=== PATIENT | female | born 1975 | race Caucasian/White ===

== ENCOUNTER → 2017-09-12 15:53 | Outpatient (CLI) | payer OTHER, SELFPAY ==
--- NOTE | 2017-09-12 15:59 | MR_ITS ---
MR lumbar spine wo con, MR 3-d myelogram/MRCP Ordering Physician: Jose Raman MD Patient Age: 41 years: Female HISTORY: ITS.REASON: HERNIATED DISC pain since 2014 Bilateral leg pain. Previous discectomy TECHNIQUE: Sagittal STIR, T1, T2, axial T1 and T2. On 1.5T Siemens wide bore MRI. 3-D MR myelogram image set obtained & performed on MRI workstation. Additional sagittal thin section T2 weighted dataset obtained from this latter acquisition as well (---76 CPT) COMPARISON :MRI L-spine August 2016 FINDINGS Vertebral bodies are intact. No compression fractures or lesions L5/S1. Disc space narrowing with reactive endplate changes about this degenerative disc again noted. There is eccentric disc bulge with additional disc protrusion towards the left recess and foramen. Actually this disc herniation is clearly smaller and less evident than on 2017 exam.. Last year there was prominent focal extruded disc material which is since markedly decreased There continues to be some indentation upon the left corner of the thecal sac and encroachment upon the left recess and foramen but is significantly less pronounced than last year exam. His a been interval procedure? (No history of such given if so) if no procedure this may reflect interval resorption. There are some old postsurgical changes likely from remote left microdiscectomy which seem to be similar to last years 2017 study Also at this L5/S1 level level mild disc bulge continuing to right foramen yields mild right foraminal encroachment. The remaining vertebral bodies and disc spaces appear intact and unremarkable foramen widely patent at all other levels. No significant findings are again seen at the L5/S1 level. Disc space narrowing with asymmetric disc bulge midline and to the left encroaches upon the left foramen and recess. IMPRESSION: ...... L5/S1.On last years exam there is a prominent focal disc extrusion at left recess & foramen.... This focal soft disc herniation material has shown marked regression and improvement-, with now only minimal residual broad-based protrusion to the left which slightly indents the left thecal sac & yields only mild /moderate residual left foraminal encroachment. Clinically correlation required . Also minimal residual stable disc bulge to the right at this L5/S1 level, which yields mild right foraminal encroachment . Other levels above this unremarkable
== END ==
PROVIDERS: PCP Nurse Practitioner; Visit Provider Orthopaedic Surgery
DX: M51.26 Other intervertebral disc displacement, lumbar region (principal)
CPT/HCPCS: 72148; 76376

== ENCOUNTER → 2019-01-10 14:45 | Outpatient (CLI) | payer OTHER, SELFPAY ==
--- NOTE | 2019-01-10 14:50 | US_ITS ---
PROCEDURE: US KIDNEY CLINICAL INDICATION: ABNORMAL KIDNEY FUNCTION COMPARISON: KID US [id number] from 12/02/2015 FINDINGS: The right kidney is 8.3 x 4 x 4.5 cm. There is some cortical thinning of the right kidney. No hydronephrosis. Small echogenic focus is present in the mid polar region and could represent a small stone. The left kidney is 10.4 x 6 x 5.5 cm. No hydronephrosis or cortical thinning. IMPRESSION: No hydronephrosis. Mild right renal cortical thinning with possible nephrolithiasis on the right Dictated by: Hernesto Chaudhry MD 01/10/2019 17:10 Signed by: <Electronically signed by Hernesto Chaudhry MD in [place]> 01/10/2019 17:10
== END ==
PROVIDERS: PCP Nurse Practitioner; Visit Provider Nurse Practitioner
DX: N28.9 Disorder of kidney and ureter, unspecified (principal)
CPT/HCPCS: 76770

== ENCOUNTER → 2019-02-17 13:40 | Outpatient (CLI) | payer OTHER, SELFPAY ==
--- NOTE | 2019-02-17 13:52 | XR_ITS ---
PROCEDURE: XR RIBS LT MIN 3V W CXR1V Patient Age:43Y CLINICAL INDICATION: LEFT RIB PAIN directly under left breast no known injury COMPARISON: CXR CHEST(2 VIEWS-NOT PORTABLE) from 12/09/2013 CXR CHEST(2 VIEWS-NOT PORTABLE) from 05/26/2015 CXR CHEST(2 VIEWS-NOT PORTABLE) from 01/15/2017 FINDINGS: Both oblique views ribs and a frontal view of ribs /chest above and below diaphragm were obtained. The left ribs are intact with no fracture nor lesion evident. The lungs are clear with no pneumothorax nor effusion or chest wall findings. Heart miladis and mediastinal structures unremarkable as well IMPRESSION: No acute findings. Negative left ribs And negative upright chest Dictated by: Thaddeus Trejo MD 02/18/2019 10:57 Electronically signed by Thaddeus Trejo MD in [place] 02/18/2019 10:57
== END ==
PROVIDERS: PCP Nurse Practitioner; Visit Provider Nurse Practitioner
DX: R07.81 Pleurodynia (principal)
CPT/HCPCS: 71101

== ENCOUNTER → 2019-04-16 07:34 | Outpatient (CLI) | payer OTHER, SELFPAY ==
[2019-04-16 07:49] LABS: Basophils # 0.1 K/mm3 (0-0.2); Basophils % 0.5 % (0.1-2.0); Eosinophils # 0.1 K/mm3 (0.0-0.4); Eosinophils % 0.7 % (0.1-12.0); Hematocrit 42.1 % (37.0-47.0); Hemoglobin 13.5 g/dL (12.2-16.2); Lymphocytes # 4.3 K/mm3 (0.7-4.5); Lymphocytes % 28.3 % (10-50); Mean Corpuscular HGB Conc 32.1 g/dL (31.8-35.4); Mean Corpuscular Hemoglobin 28.4 pg (27.0-31.2); Mean Corpuscular Volume 88.4 fl (81-99); Mean Platelet Volume 9.1 fl (7.4-10.4); Monocytes # 0.6 K/mm3 (0.1-1.0); Monocytes % 4.3 % (1.7-9.3); Neutrophils % 66.2 % (37.0-80.0); Platelet Count 296 K/mm3 (142-424); Red Blood Count 4.76 M/mm3 (4.20-5.40); Red Cell Distribution Width 13.3 % (11.5-17.5)
[2019-04-16 07:51] LABS: MANUAL DIFFERENTIAL MANUAL DIFFERENTIAL (MANUAL DIFF)
[2019-04-16 08:16] LABS: HCG Qualitative, Serum Negative (Negative)
[2019-04-16 08:25] LABS: Alanine Aminotransferase 21 U/L (12-78); Albumin Level 3.2 gm/dL (3.4-5.0); Albumin/Globulin Ratio 1.1 (1.1-1.8); Alkaline Phosphatase 60 U/L (46-116); Anion Gap 14.6 mEq/L (5-15); Aspartate Amino Transferase 17 U/L (15-37); Bilirubin,Total 0.2 mg/dL (0.2-1.0); Blood Urea Nitrogen 21 mg/dL (7-18); Calcium 8.8 mg/dL (8.5-10.1); Carbon Dioxide 27 mmol/L (21.0-32.0); Chloride 103 mmol/L (98-107); Creatinine,Serum 1.04 mg/dL (0.55-1.02); Estimated Glomerular Filt Rate 57 ml/min (>60); GFR (African American) 69 ML/MIN (>60); Glucose 106 mg/dL (74-106); Potassium 3.6 mmoL/L (3.5-5.1); Sodium 141 mmol/L (136-145); Total Protein,Serum 6.2 gm/dL (6.4-8.2)
[2019-04-16 09:55] LABS: Eosinophils % 1 % (0-3); Lymphocytes % 33 % (10-50); Monocytes % 2 % (2-9); Neutrophils % 63 % (42-76); Platelet Estimate Normal; RBC Morphology Normal; Total Cells Counted 100
== END ==
PROVIDERS: Visit Provider Obstetrics & Gynecology
DX: Z01.818 Encounter for other preprocedural examination (principal); N92.0 Excessive and frequent menstruation with regular cycle; Z30.09 Encounter for other general counseling and advice on contraception
CPT/HCPCS: 36415; 80053; 84703; 85007; 85025

== ENCOUNTER → 2019-04-25 07:09 | Outpatient (CLI) | payer OTHER, SELFPAY ==
[2019-04-25 07:44] LABS: Basophils # 0.1 K/mm3 (0-0.2); Basophils % 0.6 % (0.1-2.0); Eosinophils # 0.1 K/mm3 (0.0-0.4); Eosinophils % 1.2 % (0.1-12.0); Hematocrit 39.1 % (37.0-47.0); Hemoglobin 12.8 g/dL (12.2-16.2); Lymphocytes # 4.1 K/mm3 (0.7-4.5); Lymphocytes % 44.6 % (10-50); Mean Corpuscular HGB Conc 32.7 g/dL (31.8-35.4); Mean Corpuscular Hemoglobin 29.1 pg (27.0-31.2); Mean Corpuscular Volume 88.8 fl (81-99); Mean Platelet Volume 8.7 fl (7.4-10.4); Monocytes # 0.4 K/mm3 (0.1-1.0); Monocytes % 4.2 % (1.7-9.3); Neutrophils # 4.5 K/mm3 (1.8-7.8); Neutrophils % 49.5 % (37.0-80.0); Platelet Count 325 K/mm3 (142-424); Red Cell Distribution Width 13.1 % (11.5-17.5); White Blood Count 9.2 K/mm3 (4.8-10.8)
[2019-04-25 09:45] LABS: Alanine Aminotransferase 28 U/L (12-78); Albumin Level 3.3 gm/dL (3.4-5.0); Albumin/Globulin Ratio 1.1 (1.1-1.8); Alkaline Phosphatase 66 U/L (46-116); Anion Gap 13.8 mEq/L (5-15); Aspartate Amino Transferase 14 U/L (15-37); Bilirubin,Total 0.2 mg/dL (0.2-1.0); Blood Urea Nitrogen 15 mg/dL (7-18); Calcium 8.6 mg/dL (8.5-10.1); Carbon Dioxide 27 mmol/L (21.0-32.0); Chloride 104 mmol/L (98-107); Creatinine,Serum 1.15 mg/dL (0.55-1.02); Estimated Glomerular Filt Rate 51 ml/min (>60); GFR (African American) 62 ML/MIN (>60); Glucose 102 mg/dL (74-106); Potassium 3.8 mmoL/L (3.5-5.1); Sodium 141 mmol/L (136-145); Total Protein,Serum 6.3 gm/dL (6.4-8.2)
== END ==
PROVIDERS: Obstetrics & Gynecology; Visit Provider Nurse Practitioner Obstetrics & Gynecology
DX: Z01.818 Encounter for other preprocedural examination (principal); N92.0 Excessive and frequent menstruation with regular cycle; Z30.09 Encounter for other general counseling and advice on contraception
CPT/HCPCS: 36415; 80053; 85025

== ENCOUNTER → 2019-05-17 10:58 | Outpatient (CLI) | payer OTHER, SELFPAY ==
[2019-05-17 11:33] LABS: Basophils # 0.1 K/mm3 (0-0.2); Basophils % 0.4 % (0.1-2.0); Eosinophils % 0.2 % (0.1-12.0); Hematocrit 38.6 % (37.0-47.0); Lymphocytes # 2.9 K/mm3 (0.7-4.5); Mean Corpuscular HGB Conc 33.8 g/dL (31.8-35.4); Mean Platelet Volume 8.4 fl (7.4-10.4); Monocytes # 0.4 K/mm3 (0.1-1.0); Monocytes % 3.2 % (1.7-9.3); Neutrophils # 8.1 K/mm3 (1.8-7.8); Neutrophils % 71.1 % (37.0-80.0); Platelet Count 344 K/mm3 (142-424); Red Cell Distribution Width 13.1 % (11.5-17.5); White Blood Count 11.4 K/mm3 (4.8-10.8)
[2019-05-17 12:09] LABS: Troponin I < 0.02 ng/ml (0.00-0.06)
[2019-05-17 12:31] LABS: Alanine Aminotransferase 31 U/L (12-78); Albumin Level 3.6 gm/dL (3.4-5.0); Alkaline Phosphatase 62 U/L (46-116); Anion Gap 14.8 mEq/L (5-15); Aspartate Amino Transferase 23 U/L (15-37); Bilirubin,Direct 0.1 mg/dL (0.0-0.2); Bilirubin,Indirect 0.2 mg/dL (0.0-0.9); Bilirubin,Total 0.3 mg/dL (0.2-1.0); Blood Urea Nitrogen 11 mg/dL (7-18); Calcium 9.1 mg/dL (8.5-10.1); Carbon Dioxide 26 mmol/L (21.0-32.0); Chloride 106 mmol/L (98-107); Chol/HDL Ratio 4.8 (1-3.5); Cholesterol 286 mg/dL (140-200); Creatinine,Serum 0.98 mg/dL (0.55-1.02); Estimated Glomerular Filt Rate 61 ml/min (>60); Free T4 (Free Thyroxine) 1.32 ng/dl (0.76-1.46); GFR (African American) 74 ML/MIN (>60); Glucose 96 mg/dL (74-106); HDL Cholesterol 60 mg/dL (29-89); LDL Cholesterol 199 mg/dL (0-130); Potassium 3.8 mmoL/L (3.5-5.1); Sodium 143 mmol/L (136-145); Thyroid Stimulating Hormone 0.75 uIU/ml (0.358-3.740); Total Protein,Serum 6.6 gm/dL (6.4-8.2); Triglycerides 134 mg/dL (30-200); VLDL Cholesterol 27 mg/dL (0-40)
== END ==
PROVIDERS: Visit Provider Nurse Practitioner Family
DX: R07.9 Chest pain, unspecified (principal); I10 Essential (primary) hypertension; Z79.899 Other long term (current) drug therapy
CPT/HCPCS: 36415; 80048; 80061; 80076; 84439; 84443; 84484; 85025

== ENCOUNTER → 2019-05-25 08:08 | Outpatient (CLI) | payer OTHER, SELFPAY ==
--- NOTE | 2019-05-25 08:11 | CA_ITS ---
APPROVED REPORT Health Companion: Sofia Mccoy RVT Study Quality: GoodExcellent Indications: HTN Risk Factors Hypertension Hyperlipidemia Renal Artery Doppler Origin (R) 166.8/ cm/sec Proximal (R) 127.8/ cm/sec Mid (R) 109.1/ cm/sec Distal (R) 164.7/ cm/sec Renal Aorta Ratio (R) 1.64 Segmental A. (R) 58.3/20.0 cm/sec RI: 0.65 Segmental A. Sup (R) 45.5/22.4 cm/sec Segmental A. Mid (R) 43.9/21.6 cm/sec Segmental A. Inf (R) 58.3/20.0 cm/sec Origin (L) 98.6/ cm/sec Proximal (L) 136.5/ cm/sec Mid (L) 81.6/ cm/sec Distal (L) 116.0/ cm/sec Renal Aorta Ratio (L) 1.34 Segmental A. (L) 73.7/29.8 cm/sec RI: 0.59 Segmental A. Sup (L) 58.2/19.1 cm/sec Segmental A. Mid (L) 73.7/29.8 cm/sec Segmental A. Inf (L) 68.2/28.2 cm/sec Renal Measurements Kidney Size (R) 7.8x4.2 cm Cortical Thickness (R) 0.9 cm Kidney Size (L) 10.6x6.0 cm Cortical Thickness (L) 1.5 cm Conclusion Study suggests no evidence of bilateral renal artery stenosis. Mild right renal cortical thinning. Electronically signed by : Hernesto Chaudhry MD 05/25/2019 15:53:37
== END ==
PROVIDERS: PCP Nurse Practitioner; Visit Provider Nurse Practitioner Family
DX: I10 Essential (primary) hypertension (principal)
CPT/HCPCS: 93976

== ENCOUNTER → 2019-12-24 18:19 | Outpatient (CLI) | payer BC, SELFPAY ==
[2019-12-24 20:22] LABS: Chloride 99 mmol/L (98-107); Potassium 3.8 mmoL/L (3.5-5.1); Sodium 140 mmol/L (136-145)
[2019-12-24 20:24] LABS: Blood Urea Nitrogen 18 mg/dl (7-17)
[2019-12-24 20:25] LABS: Alanine Aminotransferase 28 U/L (12-78); Albumin Level 4.6 g/dl (3.5-5.0); Albumin/Globulin Ratio 1.7 (1.1-1.8); Alkaline Phosphatase 82 U/L (38-126); Anion Gap 15.8 mEq/L (5-15); Aspartate Amino Transferase 34 U/L (14-36); Bilirubin,Total 0.5 mg/dl (0.2-1.3); Carbon Dioxide 29 mmol/L (22.0-30.0); Estimated Glomerular Filt Rate 67 ml/min (>60); GFR (African American) 82 ML/MIN (>60); Globulin 2.7 g/dL (1.3-3.2); Total Protein,Serum 7.3 g/dl (6.3-8.2)
[2019-12-24 20:26] LABS: Calcium 10.7 mg/dl (8.4-10.2); Glucose 111 mg/dl (74-100)
== END ==
PROVIDERS: Visit Provider Nurse Practitioner
DX: N28.9 Disorder of kidney and ureter, unspecified (principal); I10 Essential (primary) hypertension
CPT/HCPCS: 36415; 80053

== ENCOUNTER 2020-03-13 18:17 | Emergency (ER) | payer BC, SELFPAY ==
--- NOTE | 2020-03-13 18:29 | HMH.EDUTC ---
[facility] [place] Dis[place] Clinical Impression: Acute bronchitis Qualifiers: Bronchitis organism: unspecified organism Qualified Code(s): J20.9 - Acute bronchitis, unspecified Sinusitis Qualifiers: Sinusitis location: unspecified location Chronicity: acute Recurrence: non-recurrent Qualified Code(s): J01.90 - Acute sinusitis, unspecified Disposition: Home, Self-Care Condition on Discharge: Good Instructions: Sinusitis, DI for Acute Bronchitis Additional Instructions: Drink plenty of fluids. Take tylenol or ibuprofen for pain or fever. Take the medications as directed. Follow up with your regular doctor. GO TO THE ER FOR ANY WORSENING SYMPTOMS Don't start the oral steroids until tomorrow, since you had the shot here today. Prescriptions: methylPREDNISolone [Medrol] 4 mg PO DIRECTED 6 Days #21 tab.ds.pk Transmission Status: Received by [facility] Benzonatate [Tessalon Perle 100mg Cap] 100 mg PO TIDP PRN #30 cap PRN Reason: Cough Transmission Status: Received by [facility] Azithromycin [Z-Jed 250mg Tab*] 250 mg PO UD DOSE PK #6 tab Transmission Status: Received by [facility] Referrals: Morelia Ramirez APRN [Primary Care Provider] - Forms: Work/School Release Time of Disposition: 19:24 Medical Decision Making - Medical Records Medical records reviewed: No: I reviewed the patient's medical records. - Kannan Inquiry Pt receiving controlled substance: No Vital Signs: 03/13/20 18:33 03/13/20 19:19 Temperature 98.6 F 98.6 F Temperature Source Oral Pulse Rate 92 H Pulse Rate [Right Brachial] 92 H Respiratory Rate 16 16 Blood Pressure 169/84 H Blood Pressure [Right Arm] 169/84 H Blood Pressure Mean [Right Arm] 112 Blood Pressure Source [Right Arm] Automatic Cuff Blood Pressure Position [Right Arm] Sitting 02 Sat by Pulse Oximetry 100 Oxygen Delivery Method Room Air Orders (Tests/Meds): ED MEDICATIONS Discontinued Medications Generic Name Dose Route Start Last Admin Trade Name Freq PRN Reason Stop Dose Admin Methylprednisolone Sodium Succinate 125 mg 03/13/20 19:07 03/13/20 19:08 Methylprednisolone Sod Succ 125mg Vial IM 03/13/20 19:08 125 mg ONCE ONE Administration [facility] [place] HPI - General Stated complaint: congestion Time Seen by Provider: 03/13/20 18:36 - History of Present Illness Provider Complaint: She c/o chest congestion and cough for the past 3 days. She states that she gets sick like this every fall. Last year at around this time she had pneumonia. She denies any fever or chills at this time. - Related Data Home Medications Medication Instructions Recorded Confirmed Furosemide [Furosemide 40MG tAB*] 40 mg PO BID 04/02/19 05/17/19 Levothyroxine Sodium 75 mcg PO DAILY 04/02/19 05/17/19 [Levothyroxine 75mcg (0.075mg) Tab] Losartan Potassium 100 mg PO DAILY 04/02/19 05/17/19 acyclovir 800 mg tablet 800 mg PO PRN tab 05/17/19 05/17/19 nortriptyline 10 mg capsule 30 mg PO QHS #90 cap 05/17/19 05/17/19 potassium chloride 20 mEq 20 meq PO DAILY tab 05/17/19 05/17/19 tablet,extended release Previous Rx's Medication Instructions Recorded atorvastatin 20 mg tablet 20 mg PO DAILY #30 tab 05/18/19 bisoprolol fumarate 5 mg tablet 5 mg PO DAILY #30 tab 10/31/19 valacyclovir 500 mg tablet 500 mg PO DAILY #30 tab 11/22/19 Azithromycin [Z-Jed 250mg Tab*] 250 mg PO UD DOSE PK #6 tab 03/13/20 Benzonatate [Tessalon Perle 100mg 100 mg PO TIDP PRN #30 cap 03/13/20 Cap] methylPREDNISolone [Medrol] 4 mg PO DIRECTED 6 Days #21 03/13/20 tab.ds.pk Allergies Allergy/AdvReac Type Severity Reaction Status Date / Time chlorhexidine Allergy Intermediate Verified 05/17/19 10:32 [From Hibiclens] amoxicillin [From AUGMENTIN] Allergy Mild Verified 05/17/19 10:32 erythromycin base Allergy Mild Verified 05/17/19 10:32 [ERYTHROMYCIN BASE] metaxalone [From SKELAXIN] Allergy Mild Verified 05/17/19 10:32 clavu
[2020-03-13 18:33] VITALS: BP 169/84; PULSE 92; RESP 16; TEMP 37; O2SAT 100; BMI 30.9
--- NOTE | 2020-03-13 18:49 | XR_ITS ---
PROCEDURE: XR CHEST 2V CLINICAL HISTORY: COUGH COMPARISON: CR CXR CHEST(2 VIEWS-NOT PORTABLE) from 05/26/2015 CR CXR CHEST(2 VIEWS-NOT PORTABLE) from 01/15/2017 CR XR RIBS LT MIN 3V W CXR1V from 02/17/2019 FINDINGS: The cardiomediastinal silhouette and pulmonary vascularity are within normal limits. There is evidence of old granulomatous disease with a calcified granuloma projecting over the anterior clear space. No lobar consolidation or collapse. No acute bony abnormalities. IMPRESSION: No acute findings. Dictated by: Hernesto Chaudhry MD 03/13/2020 20:52 Hernesto Chaudhry MD in [place] 03/13/2020 20:52
[2020-03-13 19:19] VITALS: BP 169/84; PULSE 92; RESP 16; TEMP 37; O2SAT 100
== END 2020-03-13 19:30 | disposition home or self-care (01) ==
PROVIDERS: Emergency Provider Nurse Practitioner Family; PCP Nurse Practitioner
DX: J20.9 Acute bronchitis, unspecified (principal); J01.90 Acute sinusitis, unspecified; Z20.828 Contact with and (suspected) exposure to other viral communicable diseases; K21.9 Gastro-esophageal reflux disease without esophagitis; I10 Essential (primary) hypertension; G43.709 Chronic migraine without aura, not intractable, without status migrainosus; E03.9 Hypothyroidism, unspecified; Z79.899 Other long term (current) drug therapy; Z88.1 Allergy status to other antibiotic agents
CPT/HCPCS: 71046; 96372; 99202; U0003

== ENCOUNTER → 2020-03-18 11:55 | Outpatient (CLI) | payer BC, SELFPAY ==
--- NOTE | 2020-03-18 13:20 | XR_ITS ---
PROCEDURE: XR CHEST PORTABLE CLINICAL HISTORY: COVID TEST COMPARISON: CR CXR CHEST(2 VIEWS-NOT PORTABLE) from 01/15/2017 CR XR RIBS LT MIN 3V W CXR1V from 02/17/2019 CR XR CHEST 2V from 03/13/2020 FINDINGS: The cardiomediastinal silhouette and pulmonary vascularity are within normal limits. The lungs are clear without infiltrates, suspicious nodules, or pleural effusions. No acute bony abnormalities. IMPRESSION: No acute findings. Dictated by: Dr. Abdifatah Parra MD 03/18/2020 15:14 Dr. Abdifatah Parra MD in [place] 03/18/2020 15:14
[2020-03-18 13:31] LABS: Adenovirus,PCR Not Detected (NotDetected); Bordetella Pertussis Not Detected (NotDetected); Chlamydophila Pneumoniae, PCR Not Detected (NotDetected); Coronavirus 19, PCR Not Detected (NotDetected); Coronavirus 229E Not Detected (NotDetected); Coronavirus NL63 Not Detected (NotDetected); Coronavirus OC43 Not Detected (NotDetected); Coronovirus HKU1,PCR Not Detected (NotDetected); Human Metapneumovirus Not Detected (NotDetected); Influenza A, PCR Not Detected (NotDetected); Influenza AH1, 2009 Not Detected (NotDetected); Influenza AH1, PCR Not Detected (NotDetected); Influenza AH3,PCR Not Detected (NotDetected); Influenza B, PCR Not Detected (NotDetected); Mycoplasma Pneumoniae, PCR Not Detected (NotDetected); Parainfluenza 1, PCR Not Detected (NotDetected); Parainfluenza 2, PCR Not Detected (NotDetected); Parainfluenza 3, PCR Not Detected (NotDetected); Parainfluenza 4, PCR Not Detected (NotDetected); Respiratory Syncytial Virus Not Detected (NotDetected); Rhinovirus/Enterovirus Not Detected (NotDetected)
== END ==
PROVIDERS: PCP Nurse Practitioner Family; Visit Provider Nurse Practitioner Family
DX: Z03.818 Encounter for observation for suspected exposure to other biological agents ruled out (principal)
CPT/HCPCS: 71045; 87486; 87581; 87633; 87798; U0003

== ENCOUNTER 2020-04-17 18:41 | Emergency (ER) | payer BC, SELFPAY ==
[2020-04-17 19:13] VITALS: BP 128/99; PULSE 98; RESP 16; TEMP 36.9; O2SAT 98; BMI 30.9
--- NOTE | 2020-04-17 19:42 | HMH.EDUTC ---
[facility] [place] Clinical Impression: URI (upper respiratory infection) Qualifiers: URI type: unspecified URI Qualified Code(s): J06.9 - Acute upper respiratory infection, unspecified Disposition: Home, Self-Care Condition on Discharge: Good Instructions: Sinusitis, Acute Bronchitis Additional Instructions: *Monitor Temp, Over the counter Motrin or Tylenol as directed/as needed Tylenol every 4 hours and Motrin every 6 hours (as long as your family doctor has told you that you can take it) for fever or pain. and straight to ER if unable to lower temp less than 101.0 after medication given *Warm salt water gargles may help to soothe the throat *Throat Lozenges *Warm fluids like tea with honey may help to soothe the throat *Sleep elevated *Humidifier/Vaporizer *Flonase 2 sprays in each nostril daily but be aware that it may take 2-3 days before you notice improvement Follow up IMMEDIATELY for new or worsening symptoms or no Noticeable improvement over the next 48-72 hours. 911 for difficulty breathing or swallowing You were tested for today for COVID19 your test result should be back in the next 24-48 hours, you may call to the [facility] to see if your test results are back in the next 48 hours [phone] [facility] hours are 9am-9pm You was given a handout with instructions for Self Quarantine and Self isolation for while you wait on test results and what to do if they are positive If you are positive the Health Dept will be contacting you also Prescriptions: Benzonatate [Tessalon Perle 100mg Cap*] 100 mg PO TID PRN #15 cap PRN Reason: Cough Transmission Status: Received by [facility] Azithromycin [Z-Jed 250mg Tab] 250 mg PO DIRECTED #6 tab Transmission Status: Received by [facility] Referrals: Morelia Ramirez APRN [Primary Care Provider] - As needed Forms: Work/School Release Time of Disposition: 19:56 Medical Decision Making - Kannan Inquiry Pt receiving controlled substance: No Kannan was queried for this patient: No Vital Signs: 04/17/20 19:13 04/17/20 19:45 Temperature 98.5 F 98.5 F Temperature Source Oral Oral Pulse Rate 95 H Pulse Rate [Right] 98 H Respiratory Rate 16 16 Blood Pressure 126/98 H Blood Pressure [Right Arm] 128/99 H Blood Pressure Mean [Right Arm] 108 Blood Pressure Source Automatic Cuff Blood Pressure Source [Right Arm] Automatic Cuff Blood Pressure Position Sitting Blood Pressure Position [Right Arm] Sitting 02 Sat by Pulse Oximetry 98 Oxygen Delivery Method Room Air Room Air Orders (Tests/Meds): ED MEDICATIONS Discontinued Medications Generic Name Dose Route Start Last Admin Trade Name Freq PRN Reason Stop Dose Admin Methylprednisolone Sodium Succinate 125 mg 04/17/20 19:50 04/17/20 20:05 Methylprednisolone Sod Succ 125mg Vial IM 04/17/20 19:51 125 mg ONCE ONE Administration ORDERS Category Date Time Status Covid-19 Nasal PCR Sendout [facility] 04/17/20 19:15 Received Medical Decision Narrative: Patient states that she has taken azithromycin and solumedrol multiple times without reaction or complications [facility] [place] - General Stated complaint: cough congestion sore throat headache Time Seen by Provider: 04/17/20 19:42 Mode of Arrival: Ambulatory Source of Information: Patient Limitations: No Limitations Description of Symptoms (Recalled from Triage Doc. by RN): pt advises she has cough, congestion, sore throat HEENT Symptoms (Recalled from RN notes): No Resp Symptoms (Recalled from RN notes): Yes (cough,congestion, sore throat) Skin Symptoms (Recalled from RN notes): No MS Symptoms (Recalled from RN notes): No Functional Status (Recalled from RN notes): na - History of Present Illness Provider Complaint: Patient state that she has bronchitis frequently around this time every year State that she was also around a friend that tested negative for COVID but both her children tested positive States that she has been
[2020-04-17 19:45] VITALS: BP 126/98; PULSE 95; RESP 16; TEMP 36.9; O2SAT 98
[2020-04-19 17:48] LABS: Covid-19 Nasal PCR Sendout Lex Not Detected
== END 2020-04-17 20:11 | disposition home or self-care (01) ==
PROVIDERS: Emergency Provider Nurse Practitioner; PCP Nurse Practitioner
DX: Z20.828 Contact with and (suspected) exposure to other viral communicable diseases (principal); J06.9 Acute upper respiratory infection, unspecified; K21.9 Gastro-esophageal reflux disease without esophagitis; I10 Essential (primary) hypertension; E03.9 Hypothyroidism, unspecified; G43.709 Chronic migraine without aura, not intractable, without status migrainosus; Z79.899 Other long term (current) drug therapy
CPT/HCPCS: 99201; U0004

== ENCOUNTER 2020-06-19 09:34 | Emergency (ER) | payer BC, SELFPAY ==
[2020-06-19 09:45] VITALS: BP 117/75; PULSE 76; RESP 14; TEMP 36.5; O2SAT 99; BMI 30.4
--- NOTE | 2020-06-19 10:10 | HMH.EDUTC ---
[facility] [place] Disposition Clinical Impression: Viral syndrome, Exposure to COVID-19 virus Acute bronchitis Qualifiers: Bronchitis organism: unspecified organism Qualified Code(s): J20.9 - Acute bronchitis, unspecified Disposition: Home, Self-Care Condition on Discharge: Good Instructions: DI for Acute Bronchitis, Preventing the Spread of Coronavirus Discharge Instructions Additional Instructions: Drink plenty of fluids. Take tylenol for pain or fever. Return if you begin to have difficulty breathing. Follow up with your regular doctor. GO TO THE ER FOR ANY WORSENING SYMPTOMS The cough medication (promethazine dm) will make you drowsy, so don't drive or operate heavy machinery after taking it. Prescriptions: Promethazine/Dextromethorphan [Promethazine-Dm Syrup] 5 ml PO Q6HP PRN #240 syrup PRN Reason: Cough Transmission Status: Received by [facility] Azithromycin [Z-Jed 250mg Tab*] 250 mg PO UD DOSE PK #6 tab Transmission Status: Received by [facility] Referrals: Morelia Ramirez APRN [Primary Care Provider] - Time of Disposition: 10:17 Medical Decision Making - Medical Records Medical records reviewed: No: I reviewed the patient's medical records. - Kannan Inquiry Pt receiving controlled substance: No Vital Signs: 06/19/20 09:45 06/19/20 10:23 Temperature 97.7 F 97.7 F Temperature Source Oral Pulse Rate 76 Pulse Rate [Right Brachial] 76 Respiratory Rate 14 14 Blood Pressure 117/75 Blood Pressure [Right Arm] 117/75 Blood Pressure Mean [Right Arm] 89 Blood Pressure Source [Right Arm] Automatic Cuff Blood Pressure Position [Right Arm] Sitting 02 Sat by Pulse Oximetry 99 Oxygen Delivery Method Room Air [facility] [place] HPI - General Stated complaint: Covid Test Time Seen by Provider: 06/19/20 10:10 - History of Present Illness Provider Complaint: She states that for the past 2 days she has been coughing, feeling bad, sore throat. Her has had similar symptoms. - Related Data Home Medications Medication Instructions Recorded Confirmed Furosemide [Furosemide 40MG tAB*] 40 mg PO BID 04/02/19 06/11/20 acyclovir 800 mg tablet 800 mg PO PRN tab 05/17/19 06/11/20 nortriptyline 10 mg capsule 30 mg PO QHS #90 cap 05/17/19 06/11/20 aspirin 81 mg tablet,delayed 81 mg PO DAILY 06/11/20 06/11/20 release levothyroxine 75 mcg tablet 50 mcg PO DAILY tab 06/11/20 06/11/20 Previous Rx's Medication Instructions Recorded valacyclovir 500 mg tablet 500 mg PO DAILY #30 tab 11/22/19 carvedilol 6.25 mg tablet 6.25 mg PO BID #60 tab 06/11/20 losartan 100 mg tablet 100 mg PO DAILY #30 tab 06/11/20 Azithromycin [Z-Jed 250mg Tab*] 250 mg PO UD DOSE PK #6 tab 06/19/20 Promethazine/Dextromethorphan 5 ml PO Q6HP PRN #240 syrup 06/19/20 [Promethazine-Dm Syrup] Allergies Allergy/AdvReac Type Severity Reaction Status Date / Time chlorhexidine Allergy Intermediate Verified 06/11/20 14:01 [From Hibiclens] amoxicillin [From AUGMENTIN] Allergy Mild Verified 06/11/20 14:01 erythromycin base Allergy Mild Verified 06/11/20 14:01 [ERYTHROMYCIN BASE] metaxalone [From SKELAXIN] Allergy Mild Verified 06/11/20 14:01 clavulanic acid Allergy Verified 06/11/20 14:01 [From Augmentin] [facility] History - Hepatitis A Screen Attestation statement:: This patient has been screened for Hepatitis A risk factors. I have reviewed the patient's past medical history: Yes Medical History: Reports:: Asthma, Gastroesophageal Reflux Disease(GERD), Hypertension, Migraine Denies:: Cancer, Diabetes Mellitus Type 1, Diabetes Mellitus Type 2, Internal Pacemaker, MRSA, Seizures Other Medical History: Reports: Hypothyroidism. Denies: Blood Transfusion Reaction Laterality Cases: Bilateral: Tonsillectomy Other Surgeries: Yes: Other. No: Pacemaker Amputation: No Fractures: No Comment: novasure/tubal 04/27/19 - Social History Smoking Status: Never smoker Alcohol Intake: n
[2020-06-19 10:23] VITALS: BP 117/75; PULSE 76; RESP 14; TEMP 36.5; O2SAT 99
--- NOTE | 2020-06-19 13:20 | PC.NURSE ---
PATIENT NOTIFIED OF POSITIVE COVID RESULTS
== END 2020-06-19 10:25 | disposition home or self-care (01) ==
PROVIDERS: Emergency Provider Nurse Practitioner Family; PCP Nurse Practitioner
DX: B34.9 Viral infection, unspecified (principal); Z20.822 Contact with and (suspected) exposure to COVID-19; J20.9 Acute bronchitis, unspecified
CPT/HCPCS: 99202; G0463; U0003

== ENCOUNTER → 2020-06-25 11:04 | Outpatient (CLI) | payer BC, SELFPAY ==
[2020-06-25] VITALS (8 sets, daily range): BP systolic 118–145; BP diastolic 75–96; PULSE 62–79; RESP 18; TEMP 36.6–36.9; O2SAT 94–100
== END ==
PROVIDERS: PCP Nurse Practitioner; Visit Provider Family Medicine
DX: U07.1 COVID-19 (principal)
CPT/HCPCS: 96365

== ENCOUNTER → 2020-07-25 07:56 | Outpatient (CLI) | payer BC, SELFPAY ==
--- NOTE | 2020-07-25 07:56 | MM_ITS ---
PROCEDURE: MM DIG SCREENING MAMM BI W/CAD Digital Breast Tomosynthesis Included CLINICAL INDICATION: screening xmg There is no personal or family history of breast cancer. COMPARISON: This is a baseline screening exam, patient without complaints TECHNIQUE: Standard CC and MLO images and 3D Tomosynthesis was obtained. R2 CAD reviewed. FINDINGS: Moderate diffuse somewhat heterogenic fibroglandular densities are seen throughout both breasts. There are couple of benign-appearing microcalcifications in each breast. There is a single CAD marking inner quadrant right breast was re-examined appears to be benign. There is no suspicious lesion in either breast and no suspicious microcalcifications. IMPRESSION: Moderate diffuse breast density with no suspicious lesions seen BI-RAD Category: 2 Benign Finding(s) FOLLOW-UP: 1YR 1 Year Follow-up (A letter has been sent to the patient regarding results of the study.) Dictated by: Dr. Abdifatah Parra MD 08/02/2020 10:01 Dr. Abdifatah Parra MD in [place] 08/02/2020 10:01
== END ==
PROVIDERS: PCP Nurse Practitioner; Visit Provider Nurse Practitioner Obstetrics & Gynecology
DX: Z12.31 Encounter for screening mammogram for malignant neoplasm of breast (principal)
CPT/HCPCS: 77063; 77067

== ENCOUNTER → 2021-05-27 14:14 | Outpatient (CLI) | payer OTHER, SELFPAY | PROVIDERS: Visit Provider Nurse Practitioner | DX: Z20.822 Contact with and (suspected) exposure to COVID-19 (principal) | CPT/HCPCS: C9803; U0003; U0005 ==

== ENCOUNTER → 2021-06-15 09:23 | Outpatient (CLI) | payer OTHER, SELFPAY ==
[2021-06-16 06:35] LABS: Covid-19 Nasal PCR Sendout Lex NOT DETECTED
== END ==
PROVIDERS: PCP Nurse Practitioner Family; Visit Provider Nurse Practitioner
DX: Z20.822 Contact with and (suspected) exposure to COVID-19 (principal)
CPT/HCPCS: C9803; U0004; U0005

== ENCOUNTER 2021-07-07 21:41 | Emergency (ER) | payer OTHER, SELFPAY ==
[2021-07-07 21:43] VITALS: BP 116/75; PULSE 89; RESP 18; TEMP 37.1; O2SAT 98; BMI 31.4
[2021-07-07 22:08] LABS: Microscopic, Urine URINE MICROSCOPIC (MICROSCOPIC)
--- NOTE | 2021-07-07 22:08 | CT_ITS ---
PROCEDURE INFORMATION: Exam: CT Abdomen And Pelvis With Contrast Exam date and time: 07/07/2021 10:08 PM Age: 45 years old Clinical indication: Nausea and vomiting; Additional info: N/v TECHNIQUE: Imaging protocol: Computed tomography of the abdomen and pelvis with contrast. Radiation optimization: All CT scans at this facility use at least one of these dose optimization techniques: automated exposure control; mA and/or kV adjustment per patient size (includes targeted exams where dose is matched to clinical indication); or iterative reconstruction. Contrast material: ISOVUE; Contrast volume: 75 ml; Contrast route: IV; COMPARISON: ABDPELW/O CT ABD PELVIS W/O CONTRAST 10/18/2014 9:27 AM FINDINGS: Lungs: No mass/infiltrate at either lung base. No pleural effusion. Liver: The liver is normal in size and attenuation. No intrahepatic biliary dilitation. Gallbladder and bile ducts: Normal. No calcified stones. No ductal dilation. Gallbladder wall thickness is normal. Pancreas: Normal. No ductal dilation. Spleen: Normal. No splenomegaly. Adrenal glands: Normal. No mass. Kidneys and ureters: Bilateral nonobstructing nephroliths again identified. No hydronephrosis. There is no evidence of hydroureter bilaterally. Stomach and bowel: There is diverticulosis within portions of the left colon without evidence of diverticulitis.No obstruction. No mucosal thickening. Small bowel mesentery is normal. Appendix: The appendix is not visualized, raising the possibility of appendicitis since prior examination of 10/18/2014. Intraperitoneal space: Unremarkable. No free air. No significant fluid collection. Vasculature: Arterial atheromatous calcifications are noted. No abdominal aortic aneurysm. Lymph nodes: Unremarkable. No enlarged lymph nodes. Urinary bladder: Unremarkable as visualized. Reproductive: There are clips identified within the adnexal regions, compatible with tubal ligation clips. Otherwise unremarkable. Bones/joints: L5 laminectomy has been performed. Spacer and pedicle screw/posterior metallic stabilization bar fusion of L5-S1. Soft tissues: There is a small umbilical hernia which contains fat. IMPRESSION: 1. No evidence of acute process within the abdomen or pelvis. 2. Appendix is not identified, raising the possibility of prior appendectomy since 10/18/2014. 3. Bilateral tubal ligation has been performed since prior examination. 4. L5-S1 fusion and L5 laminectomy has been performed since 10/18/2014. 5. Small umbilical hernia which contains fat.
[2021-07-07 22:16] LABS: Basophils # 0.1 K/mm3 (0-0.2); Basophils % 1.1 % (0.1-2.0); Eosinophils # 0.1 K/mm3 (0.0-0.4); Eosinophils % 0.6 % (0.1-12.0); Hematocrit 46.8 % (37.0-47.0); Hemoglobin 15.5 g/dL (12.2-16.2); Lymphocytes # 1.4 K/mm3 (0.7-4.5); Lymphocytes % 12.7 % (10-50); Mean Corpuscular HGB Conc 33.2 g/dL (31.8-35.4); Mean Corpuscular Hemoglobin 29.2 pg (27.0-31.2); Mean Corpuscular Volume 87.8 fl (81-99); Mean Platelet Volume 9.5 fl (7.4-10.4); Monocytes # 0.6 K/mm3 (0.1-1.0); Monocytes % 5.7 % (1.7-9.3); Neutrophils # 8.7 K/mm3 (1.8-7.8); Neutrophils % 79.9 % (37.0-80.0); Platelet Count 350 K/mm3 (142-424); Red Blood Count 5.33 M/mm3 (4.20-5.40); Red Cell Distribution Width 13.3 % (11.5-17.5); White Blood Count 10.8 K/mm3 (4.8-10.8)
--- NOTE | 2021-07-07 22:16 | HMH.EDNVD ---
ED Disposition Clinical Impression: Gastroenteritis Disposition: Home, Self-Care Condition on Discharge: Good Instructions: DI for Diarrhea and Traveler's Diarrhea -- Adult Additional Instructions: fluids and see pcp for follow up Referrals: Batsheva Hurtado APRN [Primary Care Provider] - - Critical Care Critical Care Time: No Attestation: On 07/07/21, the high probability of a clinically significant, sudden or life threatening deterioration of the following system(s) required my full and direct attention, intervention and personal management. The time I documented below is in addition to time spent performing reported procedures but includes the following listed in this critical care notation. Medical Decision Making - Medical Records Medical records reviewed: Yes: I reviewed the patient's medical records. - Kannan Inquiry Pt receiving controlled substance: No Vital Signs: 07/07/21 21:43 Temperature 98.8 F Temperature Source Oral Pulse Rate [Left Radial] 89 Respiratory Rate 18 Blood Pressure [Right Arm] 116/75 Blood Pressure Mean [Right Arm] 88 02 Sat by Pulse Oximetry 98 Oxygen Delivery Method Room Air - Lab Data Lab results reviewed: Yes: I reviewed the patient's lab results. Lab Results 07/07/21 21:50: TSH 2.98, Thyroxine (T4) 6.0 07/07/21 21:53: Urine Color Yellow, Urine Appearance Cloudy, Urine pH 6.0, Ur Specific [place] 1.025, Urine Protein Negative, Urine Glucose (UA) Negative, Urine Ketones Negative, Urine Blood Trace-i, Urine Nitrate Negative, Urine Bilirubin Negative, Urine Urobilinogen 0.2, Ur Leukocyte Esterase 2+ A, Urine RBC 3-5, Urine WBC 5-10, Ur Squamous Epith Cells 20-50, Urine Bacteria 2+ 07/07/21 21:53: Sodium 136, Potassium 3.6, Chloride 104, Carbon Dioxide 24, Anion Gap 11.6, BUN 10, Creatinine 1.00, Estimated Creat Clear 88, Estimated GFR 59, Est GFR ( Amer) 72, Glucose 123 H, Calcium 8.6, Total Bilirubin 0.8, AST 30, ALT 24, Alkaline Phosphatase 77, C-Reactive Protein 15.9 H, Total Protein 7.8, Albumin 4.8, Globulin 3.0, Albumin/Globulin Ratio 1.6, Amylase 99, Lipase 96 07/07/21 21:53: Serum HCG, Qual Negative 07/07/21 21:53: WBC 10.8, RBC 5.33, Hgb 15.5, Hct 46.8, MCV 87.8, MCH 29.2, MCHC 33.2, RDW 13.3, Plt Count 350, MPV 9.5, Neut % (Auto) 79.9, Lymph % (Auto) 12.7, [place] % (Auto) 5.7, Eos % (Auto) 0.6, Baso % (Auto) 1.1, Neut # (Auto) 8.7 H, Lymph # (Auto) 1.4, [place] # (Auto) 0.6, Eos # (Auto) 0.1, Baso # (Auto) 0.1, ESR 27 H 07/07/21 21:53: Procalcitonin 0.118 Result diagrams: 07/07/21 21:53 07/07/21 21:53 Orders (Tests/Meds): ED MEDICATIONS Generic Name Dose Route Start Last Admin Trade Name Freq PRN Reason Stop Dose Admin Lactated Ringer's 1,000 mls @ 999 mls/hr 07/07/21 22:15 07/07/21 22:11 Lactated Ringer's 1000 Ml Bag IV 07/07/21 23:15 999 mls/hr .Q1H1M GONZALO Administration Lactated Ringer's 1,000 mls @ 999 mls/hr 07/07/21 22:45 07/07/21 22:44 Lactated Ringer's 1000 Ml Bag IV 07/07/21 23:45 999 mls/hr .Q1H1M GONZALO Administration Discontinued Medications Generic Name Dose Route Start Last Admin Trade Name Freq PRN Reason Stop Dose Admin Famotidine 20 mg 07/07/21 22:40 07/07/21 22:44 Famotidine 20mg/2ml Vial IV 07/07/21 22:41 20 mg ONCE ONE Administration Iopamidol 75 ml 07/07/21 22:42 07/07/21 22:43 Iopamidol-370 (76%);100ml Bottle IV 07/07/21 22:43 75 ml ONCE ONE Administration Metoclopramide HCl 10 mg 07/07/21 22:40 07/07/21 22:44 Metoclopramide Hcl 10mg/2ml Vial IVP 07/07/21 22:41 10 mg ONCE ONE Administration Ondansetron HCl 4 mg 07/07/21 22:02 07/07/21 22:10 Ondansetron 4mg/2ml Vial IV 07/07/21 22:03 4 mg ONCE ONE Administration Sodium Chloride 10 ml 07/07/21 22:42 07/07/21 22:43 Sodium Chloride 0.9% 10ml Syr (Rad Only) IV 07/07/21 22:43 10 ml ONCE ONE Administration ORDERS Category Date Time Status Diarrhea 23 Panel, PCR Stat Lab 07/07/21 22:04 Ordered Ur
[2021-07-07 22:19] LABS: Alanine Aminotransferase 24 U/L (12-78); Albumin Level 4.8 g/dl (3.5-5.0); Albumin/Globulin Ratio 1.6 (1.1-1.8); Alkaline Phosphatase 77 U/L (38-126); Amylase 99 U/L (30-110); Anion Gap 11.6 mEq/L (5-15); Aspartate Amino Transferase 30 U/L (14-36); Bilirubin,Total 0.8 mg/dl (0.2-1.3); Blood Urea Nitrogen 10 mg/dl (7-17); Calcium 8.6 mg/dl (8.4-10.2); Carbon Dioxide 24 mmol/L (22.0-30.0); Chloride 104 mmol/L (98-107); Creatinine Clearance Estimated 88 mL/min (50-200); Estimated Glomerular Filt Rate 59 ml/min (>60); GFR (African American) 72 ML/MIN (>60); Glucose 123 mg/dl (74-100); Lipase 96 U/L (23-300); Potassium 3.6 mmoL/L (3.5-5.1); Sodium 136 mmol/L (136-145); Total Protein,Serum 7.8 g/dl (6.3-8.2)
[2021-07-07 22:23] LABS: Appearance,Urine CLOUDY (Clear); Bilirubin,Urine Negative (Negative); Blood, Urine TRACE-I (Negative); Color,Urine YELLOW (Yellow); Glucose,Urine (UA) Negative (Negative); HCG Qualitative, Serum Negative (Negative); Ketones,Urine Negative (Negative); Leukocyte Esterase,Urine 2+ (Negative); Nitrate,Urine Negative (Negative); Protein,Urine Negative (Negative); Specific Gravity, Urine 1.025 (1.005-1.030); Urobilinogen,Urine 0.2 EU/dl (0.2)
[2021-07-07 22:24] LABS: C-Reactive Protein 15.9 mg/L (0-4)
[2021-07-07 22:36] LABS: Bacteria,Urine 2+ /lpf; Squamous Epithelial Cell,Urine 20-50 #/hpf (0-5)
[2021-07-07 22:38] LABS: Procalcitonin 0.118 ng/mL (0.0-2.0)
[2021-07-07 23:05] LABS: Erythrocyte Sedimentation Rate 27 mm/hr (0-20)
[2021-07-07 23:11] LABS: Thyroid Stimulating Hormone 2.98 uIU/mL (0.465-4.68)
[2021-07-08 00:10] VITALS: BP 115/78; PULSE 69; RESP 17; TEMP 36.8; O2SAT 98
== END 2021-07-08 00:21 | disposition home or self-care (01) ==
PROVIDERS: Emergency Provider Emergency Medicine; PCP Nurse Practitioner Family
DX: K52.9 Noninfective gastroenteritis and colitis, unspecified (principal); I10 Essential (primary) hypertension; K21.9 Gastro-esophageal reflux disease without esophagitis; J45.909 Unspecified asthma, uncomplicated
CPT/HCPCS: 74177; 80053; 81001; 82150; 83690; 84145; 84436; 84443; 84703; 85025; 85651; 86140; 87086; 96365; 96366; 96375; 99283; J2405; Q9967

== ENCOUNTER 2021-09-07 18:25 | Emergency (ER) | payer OTHER, SELFPAY ==
[2021-09-07 18:53] VITALS: BP 131/89; PULSE 78; RESP 18; TEMP 36.8; O2SAT 99; BMI 30.9
--- NOTE | 2021-09-07 19:02 | HMH.EDUTC ---
[facility] [place] Disposition Clinical Impression: Sinusitis Qualifiers: Sinusitis location: unspecified location Chronicity: unspecified Qualified Code(s): J32.9 - Chronic sinusitis, unspecified Acute bronchitis Qualifiers: Bronchitis organism: unspecified organism Qualified Code(s): J20.9 - Acute bronchitis, unspecified Disposition: Home, Self-Care Condition on Discharge: Good Instructions: Sinusitis, Acute Bronchitis, DI for Sinusitis, DI for Cough -- Adult Additional Instructions: ? Start antibiotic today. Be sure to complete entire prescription even if feeling better ? Monitor temp. Tylenol every 4 hours as needed and / or ibuprofen every 6 hours as needed ( As long as your primary care physician has told you that it ok to take both. For fever/aches/pains ER if no less than 101 despite Tylenol or Motrin ? Humidifier/vaporizer or hot steamy shower ? Inhaler every 4-6 hours as needed like we discussed. If unsure how to use it, ask pharmacist to demonstrate how. Should help open airways and improve cough, wheezing, and shortness of breath *Tessalon Perles will not cause drowsiness but use at bedtime to help stop cough so that you may get some rest. *Start steroid today. Helps with inflammation therefore, cough and wheezing. Follow directions on the package. Reviewed side effects. Patient reports taking them before. Follow up IMMEDIATELY for new or worsening of symptoms OR no noticeable improvement over the next 48-72 hours. 911 immediately for any life threatening symptoms such as chest pain or difficulty breathing Prescriptions: Albuterol Sulfate [Proventil-HFA 90mcg/puff Inh] 1 - 2 puffs IH Q4HP PRN #1 each PRN Reason: Shortness Of Breath Transmission Status: Pending to [facility] Benzonatate [Benzonatate 100mg cap] 100 mg PO Q8HP PRN #15 cap PRN Reason: Cough Transmission Status: Pending to [facility] predniSONE [Prednisone 20mg Tab] 20 mg PO BID 5 Days #10 tab [facility]: [facility] Azithromycin [Z-Jed 250mg Tab] 250 mg PO DIRECTED #6 tab [facility]: [facility] Referrals: Batsheva Hurtado APRN [Primary Care Provider] - As needed Forms: Work/School Release Time of Disposition: 19:15 Medical Decision Making - Kannan Inquiry Pt receiving controlled substance: No Kannan was queried for this patient: No Vital Signs: 09/07/21 18:53 Temperature 98.2 F Temperature Source Oral Pulse Rate [Right Radial] 78 Respiratory Rate 18 Blood Pressure [Right Arm] 131/89 Blood Pressure Mean [Right Arm] 103 Blood Pressure Source [Right Arm] Automatic Cuff Blood Pressure Position [Right Arm] Sitting 02 Sat by Pulse Oximetry 99 Oxygen Delivery Method Room Air Medical Decision Narrative: Patient states that she has taken azithromycin and prednisone in the past without complications or reactions [facility] [place] HPI - General Stated complaint: COUGH CONGESTION Time Seen by Provider: 09/07/21 19:02 Mode of Arrival: Ambulatory Source of Information: Patient Limitations: No Limitations Description of Symptoms (Recalled from Triage Doc. by RN): C/O cough and congestion x2 days HEENT Symptoms (Recalled from RN notes): No Resp Symptoms (Recalled from RN notes): Yes (cough and congestion) Skin Symptoms (Recalled from RN notes): No MS Symptoms (Recalled from RN notes): No Functional Status (Recalled from RN notes): n/a - History of Present Illness Provider Complaint: Patient states that she has been having cough and chest congestion for several weeks States that she was seen and dx with ear infection but has completed the medication and still not any better States that her throat is scratchy and feels like she is having drianage in the back of her throat that has continued to get worse over the last few days - Related Data Home Medications Medication Instructions Recorded Confirmed furosemide 40 mg tablet 40 mg PO BID 07/14/20 07/07/21 atorva
[2021-09-07 19:21] VITALS: BP 131/89; PULSE 78; RESP 18; TEMP 36.8; O2SAT 99
== END 2021-09-07 19:21 | disposition home or self-care (01) ==
PROVIDERS: Emergency Provider Nurse Practitioner; PCP Nurse Practitioner Family
DX: J32.9 Chronic sinusitis, unspecified (principal); J20.9 Acute bronchitis, unspecified; E03.9 Hypothyroidism, unspecified; K21.9 Gastro-esophageal reflux disease without esophagitis; I10 Essential (primary) hypertension; J45.909 Unspecified asthma, uncomplicated; Z79.899 Other long term (current) drug therapy; Z88.1 Allergy status to other antibiotic agents
CPT/HCPCS: 99212; G0463

== ENCOUNTER → 2021-09-17 08:34 | Outpatient (CLI) | payer OTHER, SELFPAY ==
--- NOTE | 2021-09-17 | CA_ITS ---
APPROVED REPORT Exam: Exercise Treadmill Technologist: Jen Sorto, Ht: 5 ft 3 in Wt: 171 lbs BSA: 1.81 m2 HR: 64 bpm BP: 148/88 mmHg Rhythm: NSR, NORMAL Indications: CP, SOA Medical History Medical History: HTN, Hyperlipidemia Medications: Levothyroxine,,,,, Losartan,,,,, Atorvastatin,,,,, Carvedilol,,,,, Albuterol,,,,, Furosemide,,,,, Allergies: CHLORHEXIDINE, AMOXICILLIN, ERYTHROMYCIN, METAXALONE, AMLODIPINE, CLAVULANIC Cardiac Risk Factors: HTN, , Hyperlipidemia, FHX of CAD Stress Test Details Test: Jonathan, Exercise stress testing was performed using a modified Jonathan protocol. HR Resting HR: 71 bpm Max Heart Rate (APMHR): 173.450680 bpm Max HR Achieved: 143 bpm Target HR (85% APMHR): 147.081911 bpm % of APMHR: 82.66 Recovery HR: 82 bpm BP Resting BP: 135/77 mmHg Max BP: 195/82 mmHg Recovery BP: 121.0/73.0 mmHg ECG Resting ECG: NSR, NORMAL Clinical Exercise duration: 09:28 min Highest Stage Achieved: Stage 4: 4.2 mph at 16% grade. Exercise capacity: 10.1 METs Stress ECG Conclusion PT EXERCISED 9:28 INTO STAGE 4 OF JONATHAN PROTOCOL. MAX HR: 143 % OF PM: 83% MAX BP: 195/82 METS: 10.1 TEST STOPPED DUE TO: SOA, FATIGUE PT HAD CHEST TIGHTNESS, SOA, AND LIGHT HEADEDNESS. NORMAL ST RESPONSE TO EXERCISE. CP BUT NO ISCHEMIC EKG CHANGES WITH EXERCISE. BLUNTED HR RESPONSE ON BETA LARON. ECHO IMAGES REPORTED SEPARATELY. Test Summary Stage 3 02:00 14.0 3.4 126 . . . . REST . . . . . . . Standing REST 03:40 0.0 0.0 71 . 135/ 77 . . Stage 1 01:00 10.0 1.7 82 . . . . Stage 1 02:00 10.0 1.7 91 . . . . Stage 1 03:00 10.0 1.7 95 . 138/ 76 . . Stage 2 01:00 12.0 2.5 99 . . . . Stage 2 02:00 12.0 2.5 99 . . . . Stage 2 03:00 12.0 2.5 101 . 142/ 80 . . Stage 3 01:00 14.0 3.4 115 . . . . Stage 3 02:00 14.0 3.4 126 . . . . Stage 3 03:00 14.0 3.4 131 . 195/ 82 . . Stage 4 00:28 16.0 4.2 140 . . . Stop exercise at 09:28 RECOVERY 01:00 0.0 0.0 109 . . . . RECOVERY 02:00 0.0 0.0 88 . . . . RECOVERY 03:00 0.0 0.0 85 . . . . RECOVERY 04:00 0.0 0.0 83 . . . . RECOVERY 05:00 0.0 0.0 86 . 136/ 71 . . RECOVERY 05:45 0.0 0.0 83 . 121/ 73 . . Electronically signed by : Giovanni Guardado MD 09/18/2021 09:19:51
--- NOTE | 2021-09-17 08:36 | CA_ITS ---
APPROVED REPORT EXAM: Comprehensive 2D, Doppler, and color-flow Echocardiogram Collection Agent: Sofia Mccoy RVT Ht: 5 ft 3 in Wt: 171lbs BSA: 1.81 BP: 130/84 mmHg Indications: CP,SOA,ASTHMA,GERD,HTN Stress Test Details HR Max Heart Rate (APMHR): 173.688034 bpm Target HR (85% APMHR): 147.265182 bpm BP ECG Conclusion 1. Patient exercised on Jonathan protocol 9 minutes and 28 seconds, achieved 83% of the maximum predicted heart rate, resting electrocardiogram shows sinus rhythm, with exercise there is less than 1.[address] segment depression noted from the baseline EKG. The EKG portion of the exercise stress echo is nondiagnostic as patient did not achieve the target heart rate, patient has good exercise capacity achieved 10.1 METs of workload on treadmill, the blood pressure response to exercise was adequate, patient complained of chest pain during the stress test. 2. Normal left ventricular size and function at rest with no regional wall motion abnormality, with exercise there is increase in contractility of all the segments of the myocardium with hyperdynamic left ventricular systolic response, no obvious regional wall motion abnormality to suggest provoked ischemia. 3. Normal segmental wall motion at 83% of the maximum predicted heart rate although patient complained chest discomfort with exercise. Electronically signed by : Giovanni Guardado MD 09/18/2021 09:22:53
== END ==
LOC: RT 08:36
PROVIDERS: PCP Nurse Practitioner Family; Visit Provider Internal Medicine Cardiovascular Disease
DX: R06.09 Other forms of dyspnea (principal); R07.9 Chest pain, unspecified; I10 Essential (primary) hypertension
CPT/HCPCS: 93017; 93350

== ENCOUNTER → 2022-03-31 08:56 | Outpatient (CLI) | payer OTHER, SELFPAY ==
--- NOTE | 2022-03-31 09:01 | XR_ITS ---
FINAL REPORT CLINICAL HISTORY: RT FOOT PAIN..no injury FINDINGS: RIGHT FOOT Three views of the right foot demonstrate no acute fracture or dislocation. There are mild hypertrophic changes of the 1st MTP joint. The soft tissues are unremarkable. IMPRESSION: No acute bony abnormality. Mild hypertrophic changes of the 1st MTP joint. Reviewed, Interpreted and Dictated by Gurvinder Martell MD Transcribed by Alannah Ramos Authenticated and [facility]
== END ==
LOC: RAD 08:58
PROVIDERS: PCP Nurse Practitioner Family; Visit Provider Family Medicine
DX: M79.671 Pain in right foot (principal)
CPT/HCPCS: 73630

== ENCOUNTER 2022-04-12 08:57 | Emergency (ER) | payer OTHER, SELFPAY ==
[2022-04-12] VITALS (10 sets, daily range): BP systolic 140–161; BP diastolic 69–99; PULSE 71–94; RESP 16–18; TEMP 36.7–36.9; O2SAT 96–100; BMI 30.2
--- NOTE | 2022-04-12 09:05 | PC.NURSE ---
DR. TABOR AT BEDSIDE FOR EVALUATION
--- NOTE | 2022-04-12 09:11 | CT_ITS ---
FINAL REPORT CLINICAL HISTORY: abd pain COMPARISON: 07/07/2021 FINDINGS: Technique: The patient was injected with intravenous contrast. Axial images through the abdomen and pelvis were performed. This study was performed with techniques to keep radiation doses as low as reasonably achievable (ALARA). Individualized dose reduction techniques using automated exposure control or adjustment of mA and/or kV according to the patient's size were employed. Abdomen: The lung bases are clear. The liver is normal in size and attenuation. The gallbladder is unremarkable. The spleen is unremarkable. The adrenals are normal. The pancreas is unremarkable. There are small bilateral nonobstructing renal stones, more numerous on the right than on the left. The aorta is normal in caliber. There is no free fluid or adenopathy. Pelvis: There is no evidence of appendicitis. There is mild sigmoid diverticulosis. There is questionable short-segment wall thickening of the distal sigmoid colon. There is abnormal appearance of the uterus with separate hypodensities of the uterine fundus measuring 2.3 cm on the right and 1.6 cm on the left. It is not clear whether these hypodensities communicate with the uterine cavity although these have enlarged significantly since the prior exam. These could represent enlarging fibroids. There is a benign-appearing 2.4 cm right ovarian cyst. The urinary bladder is unremarkable. There is no free fluid or adenopathy. IMPRESSION: 1. Nonobstructing bilateral renal stones. 2. No significant inflammatory changes. 3. Possible wall thickening in the distal sigmoid colon, neoplasm not excluded. Consider follow-up colonoscopy. 4. Enlarging hypodensities within the uterine fundus, consider pelvic ultrasound follow-up to further evaluate the uterus. Reviewed, Interpreted and Dictated by Toña Casiano MD Transcribed by Alannah Ramos Authenticated and [facility]
--- NOTE | 2022-04-12 09:14 | HMH.EDABDPAI ---
Discharge Plan Disposition Chief Complaint: Abdominal Pain Prescriptions Prescriptions: No Action levothyroxine [Euthyrox] 50 mcg tablet 50 mcg PO DAILY furosemide 40 mg tablet 40 mg PO BID Qty: 60 5RF losartan 100 mg tablet 100 mg PO DAILY Qty: 30 5RF atorvastatin 20 mg tablet 20 mg PO HS Qty: 30 5RF carvedilol 6.25 mg tablet 6.25 mg PO BID Qty: 60 5RF Rx Instructions: must administer with a meal/food albuterol sulfate 200 PUFFS HFA aerosol inhaler 1 - 2 puffs IH Q4HP PRN (Reason: Shortness Of Breath) Qty: 1 0RF Referrals Follow up/Referrals: Batsheva Hurtado APRN [Primary Care Provider] - See instructions Instructions Patient Instructions: DI for Acute Abdominal Pain Discharge ED Provider: Charles Wall Abdominal Pain HPI General Chief Complaint: Abdominal Pain Stated Complaint: possible appendix attack Time Seen by Provider: 04/12/22 09:04 Mode of Arrival: Ambulatory Limitations: No Limitations Description of Symptoms (Recalled from ER Triage Doc. by RN): PT REPORTS RIGHT LOWER QUAD PAIN SINCE TUESDAY. SEEN BY ED IN [place], TREATED FOR COLITIS, NO IMPROVEMENT History of Present Illness HPI narrative: Patient presents complaining of progressively worsening abdominal pain for the last 5 days. She was seen at another facility 2 days ago and diagnosed with colitis for which antibiotics and analgesics were prescribed. She states symptoms have worsened despite taking the medication as directed. She did undergo CT scanning at that time that did not demonstrate acute appendicitis. She denies fever she denies vomiting. She describes the pain as severe and worse with movement. Related Data Home Medications Medication Instructions Recorded Confirmed levothyroxine 50 mcg tablet 50 mcg PO DAILY HYPOTHYROIDISM 12/25/20 09/25/21 (Euthyrox) Previous Rx's Medication Instructions Recorded albuterol sulfate 90 mcg/actuation 1 - 2 puffs inhalation Q4HP PRN 09/07/21 aerosol inhaler Shortness Of Breath #1 ea atorvastatin 20 mg tablet 20 mg PO HS High cholesterol #30 09/11/21 tabs carvedilol 6.25 mg tablet 6.25 mg PO BID HEART RATE #60 tabs 09/11/21 furosemide 40 mg tablet 40 mg PO BID FLUID RETENSION #60 09/11/21 tabs losartan 100 mg tablet 100 mg PO DAILY #30 tabs 09/11/21 Allergies Allergy/AdvReac Type Severity Reaction Status Date / Time chlorhexidine Allergy Intermediate Verified 09/25/21 14:03 [From Hibiclens] amoxicillin [From AUGMENTIN] Allergy Mild Verified 09/25/21 14:03 erythromycin base Allergy Mild Verified 09/25/21 14:03 [ERYTHROMYCIN BASE] metaxalone [From SKELAXIN] Allergy Mild Verified 09/25/21 14:03 amlodipine [From Norvasc] Allergy Rash,Itchin Verified 09/25/21 14:03 ess clavulanic acid Allergy Verified 09/25/21 14:03 [From Augmentin] [facility] Medical History Abnormal EKG Dyspnea Hypertension Malignant hypertension Social History Smoking Status: Never smoker second hand exposure: Yes alcohol intake: never substance use type: denies use current occupational status: other Travel in the last 8 weeks: None household members: spouse housing: house current occupation: ACCOUNTING current occupational exposures/hazards: No caffeine: No ROS Obtained: Yes All systems reviewed & no additional complaints except as documented Physical Exam General General appearance: alert and in no apparent distress Head Head exam: atraumatic, normocephalic and normal inspection Eye Eye exam: Present normal appearance, PERRL and EOMI ENT ENT exam: Present normal exam, normal oropharynx, mucous membranes moist, TM's normal bilaterally and normal external ear exam Neck Neck exam: Present normal inspection, full ROM and trachea midline; Absent meningismus or lymphadenopathy Chest Chest inspection: Present
[2022-04-12 09:30] LABS: Microscopic, Urine URINE MICROSCOPIC (MICROSCOPIC)
[2022-04-12 09:32] LABS: Appearance,Urine SL CLOUDY (Clear); Blood, Urine Negative (Negative); Color,Urine YELLOW (Yellow); Glucose,Urine (UA) Negative (Negative); Ketones,Urine 1+ (Negative); Leukocyte Esterase,Urine 1+ (Negative); Nitrate,Urine Negative (Negative); PH,Urine 6.5 (5.0-8.5); Protein,Urine TRACE (Negative); Specific Gravity, Urine >= 1.030 (1.005-1.030); Urobilinogen,Urine 0.2 EU/dl (0.2)
[2022-04-12 09:36] LABS: Bilirubin,Urine 1+ (Negative)
[2022-04-12 09:36] LABS: Alanine Aminotransferase 31 U/L (12-78); Albumin Level 4.7 g/dl (3.5-5.0); Albumin/Globulin Ratio 1.7 (1.1-1.8); Alkaline Phosphatase 91 U/L (38-126); Anion Gap 20.4 mEq/L (5-15); Aspartate Amino Transferase 35 U/L (14-36); Basophils # 0.2 K/mm3 (0-0.2); Basophils % 1.9 % (0.1-2.0); Bilirubin,Total 0.5 mg/dl (0.2-1.3); Blood Urea Nitrogen 11 mg/dl (7-17); Calcium 9.7 mg/dl (8.4-10.2); Carbon Dioxide 24 mmol/L (22.0-30.0); Chloride 99 mmol/L (98-107); Creatinine Clearance Estimated 84 mL/min (50-200); Eosinophils # 0.1 K/mm3 (0.0-0.4); Eosinophils % 1.1 % (0.1-12.0); Estimated Glomerular Filt Rate 59 ml/min (>60); GFR (African American) 72 ML/MIN (>60); Globulin 2.8 g/dL (1.3-3.2); Glucose 107 mg/dl (74-100); Hematocrit 46.6 % (37.0-47.0); Hemoglobin 15.4 g/dL (12.2-16.2); Lipase 62 U/L (23-300); Lymphocytes # 2.7 K/mm3 (0.7-4.5); Lymphocytes % 24.8 % (10-50); Mean Corpuscular Hemoglobin 28.8 pg (27.0-31.2); Mean Corpuscular Volume 87.4 fl (81-99); Mean Platelet Volume 8.9 fl (7.4-10.4); Monocytes # 0.5 K/mm3 (0.1-1.0); Monocytes % 4.4 % (1.7-9.3); Neutrophils # 7.3 K/mm3 (1.8-7.8); Neutrophils % 67.8 % (37.0-80.0); Platelet Count 305 K/mm3 (142-424); Potassium 3.4 mmoL/L (3.5-5.1); Red Blood Count 5.33 M/mm3 (4.20-5.40); Red Cell Distribution Width 13.6 % (11.5-17.5); Sodium 140 mmol/L (136-145); Total Protein,Serum 7.5 g/dl (6.3-8.2); White Blood Count 10.8 K/mm3 (4.8-10.8)
[2022-04-12 09:45] LABS: Bacteria,Urine Trace /lpf
--- NOTE | 2022-04-12 09:53 | PC.NURSE ---
PT BACK FROM CT
--- NOTE | 2022-04-12 10:22 | PC.NURSE ---
ROUNDED ON PT AT THIS TIME. PT RESTING WITH EYES CLOSED. DENIES NEEDS. FAMILY AT BEDSIDE
--- NOTE | 2022-04-12 11:04 | PC.NURSE ---
PT MEDICATED PER EMAT, NO FURTHER NEEDS AT THIS TIME
--- NOTE | 2022-04-12 11:46 | US_ITS ---
FINAL REPORT TECHNIQUE: Transvaginal ultrasound imaging of the pelvis was obtained. CLINICAL HISTORY: rlq pain FINDINGS: The uterus measures 8.3 x 4.0 x 5.6 cm. Endometrium measures 0.4 cm. Hypoechoic, cystic masses are seen of the subendometrial uterine fundus measuring up to 2.4 and 1.7 cm. Findings may represent post endometrial ablation changes with hemorrhage or, less likely, degenerated fibroids. There is a complex, septated cystic mass of the right ovary measuring 2 cm. The left ovary is unremarkable. There is no free fluid. IMPRESSION: Complex cystic masses of the uterine fundus measuring up to 2.4 cm, favor post ablation changes with subendometrial hemorrhagic cysts. Recommend follow-up in 2-3 months. Complex, septated right ovarian cystic mass. Recommend follow-up in 2-3 months. Reviewed, Interpreted and Dictated by Toña Casiano MD Transcribed by Ramona Jones Authenticated and [facility]
--- NOTE | 2022-04-12 11:46 | PC.NURSE ---
DR. TABOR AT BEDSIDE TO DISCUSS POC
--- NOTE | 2022-04-12 12:10 | PC.NURSE ---
RADIOLOGY NOTIFIED OF US
--- NOTE | 2022-04-12 12:15 | PC.NURSE ---
PT TO U/S AT THIS TIME
--- NOTE | 2022-04-12 12:44 | PC.NURSE ---
Pt return from US
--- NOTE | 2022-04-12 12:45 | PC.NURSE ---
PT RETURNED FROM US
== END 2022-04-12 13:55 | disposition home or self-care (01) ==
PROVIDERS: Emergency Provider Emergency Medicine; PCP Nurse Practitioner Family
DX: N83.201 Unspecified ovarian cyst, right side (principal); K52.9 Noninfective gastroenteritis and colitis, unspecified
CPT/HCPCS: 74177; 76830; 80053; 81001; 83690; 85025; 87086; 96374; 96375; 96376; 99285; J2405; Q9967

== ENCOUNTER → 2022-06-21 08:43 | Outpatient (CLI) | payer OTHER, SELFPAY ==
[2022-06-21 09:33] LABS: Basophils # 0.1 K/mm3 (0-0.2); Basophils % 1.7 % (0.1-2.0); Eosinophils # 0.1 K/mm3 (0.0-0.4); Eosinophils % 1.2 % (0.1-12.0); Hematocrit 44.1 % (37.0-47.0); Hemoglobin 14.6 g/dL (12.2-16.2); Lymphocytes # 2.7 K/mm3 (0.7-4.5); Lymphocytes % 36.4 % (10-50); Mean Corpuscular HGB Conc 33.1 g/dL (31.8-35.4); Mean Corpuscular Hemoglobin 28.4 pg (27.0-31.2); Mean Platelet Volume 9.2 fl (7.4-10.4); Monocytes # 0.4 K/mm3 (0.1-1.0); Monocytes % 5.6 % (1.7-9.3); Neutrophils # 4.1 K/mm3 (1.8-7.8); Neutrophils % 55.1 % (37.0-80.0); Platelet Count 290 K/mm3 (142-424); Red Blood Count 5.12 M/mm3 (4.20-5.40); White Blood Count 7.4 K/mm3 (4.8-10.8)
[2022-06-21 10:24] LABS: Chloride 106 mmol/L (98-107); Potassium 4.3 mmoL/L (3.5-5.1); Sodium 143 mmol/L (136-145)
[2022-06-21 10:26] LABS: Alanine Aminotransferase 34 U/L (12-78); Alkaline Phosphatase 63 U/L (38-126); Aspartate Amino Transferase 33 U/L (14-36); Bilirubin,Total 0.7 mg/dl (0.2-1.3); Blood Urea Nitrogen 15 mg/dl (7-17); Estimated Glomerular Filt Rate 59 ml/min (>60); GFR (African American) 72 ML/MIN (>60)
[2022-06-21 10:27] LABS: Albumin Level 4.8 g/dl (3.5-5.0); Albumin/Globulin Ratio 1.8 (1.1-1.8); Anion Gap 11.3 mEq/L (5-15); Calcium 9.8 mg/dl (8.4-10.2); Carbon Dioxide 30 mmol/L (22.0-30.0); Chol/HDL Ratio 3.4 (1-3.5); Cholesterol 213 mg/dl (140-200); Globulin 2.6 g/dL (1.3-3.2); Glucose 98 mg/dl (74-100); HDL Cholesterol 62 mg/dl (40-60); Total Protein,Serum 7.4 g/dl (6.3-8.2); Triglycerides 139 mg/dl (30-150); VLDL Cholesterol 28 mg/dL (0-40)
[2022-06-22 11:02] LABS: Triiodothyronine (T3) Free 3.2 pg/mL (2.0-4.4)
== END ==
LOC: LAB 08:45
PROVIDERS: PCP Nurse Practitioner Family; Visit Provider Nurse Practitioner Family
DX: E03.9 Hypothyroidism, unspecified (principal); I10 Essential (primary) hypertension
CPT/HCPCS: 36415; 80053; 80061; 84439; 84443; 84481; 85025

== ENCOUNTER → 2022-06-30 14:14 | Outpatient (CLI) | payer OTHER, SELFPAY ==
--- NOTE | 2022-06-30 14:17 | MR_ITS ---
FINAL REPORT TECHNIQUE: Multi planar MR imaging was performed through the right foot. CLINICAL HISTORY: RIGHT FOOT PAIN SWELLING OF RIGHT FOOT FINDINGS: Bone marrow signal intensity is normal without edema, fracture or pathologic marrow replacement. There is mild degenerative disease of the 1st metatarsophalangeal. The Lisfranc joint is intact. The Lisfranc ligament is intact. The flexor and extensor tendons to the toes are intact. The Achilles tendon is intact. The plantar fascia is normal. There is no acute soft tissue abnormality. IMPRESSION: Mild degenerative disease of the 1st metatarsophalangeal. Reviewed, Interpreted and Dictated by Jacy Flower MD Transcribed by Laurel Johansen Authenticated and [facility]
== END ==
LOC: RAD 14:14
PROVIDERS: PCP Nurse Practitioner Family; Visit Provider Nurse Practitioner Family
DX: M79.89 Other specified soft tissue disorders (principal)
CPT/HCPCS: 73718

== ENCOUNTER 2022-08-27 10:39 | Emergency (ER) | payer OTHER, SELFPAY ==
[2022-08-27 10:45] VITALS: BP 118/79; PULSE 70; RESP 19; TEMP 36.4; O2SAT 100; BMI 29.7
--- NOTE | 2022-08-27 10:56 | EXP.UTC ---
Discharge Plan Disposition Patient Disposition: Home, Self-Care Condition: Good Prescriptions Prescriptions: New gentamicin 0.3 % drops 2 drp ophthalmic (eye) Q4H 7 Days Qty: 5 0RF No Action levothyroxine [Euthyrox] 50 mcg tablet 50 mcg PO DAILY meloxicam 15 mg tablet 15 mg PO DAILY furosemide 40 mg tablet 40 mg PO DAILY Rx Instructions: TAKE ONE TABLET BY MOUTH 2 TIMES A DAY FOR FLUID RETENSION losartan 100 mg tablet 100 mg PO DAILY Rx Instructions: TAKE ONE TABLET BY MOUTH ONCE A DAY Referrals Follow up/Referrals: Batsheva Hurtado APRN [Primary Care Provider] - See instructions Activity Restrictions/Add. Instructions Additional Instructions/Restrictions: Wash hands well before and after applying drops to eyes Use drops as directed Follow up with Eye Doctor if no improvement or any worsening of symptoms Return if needed Clinical Impressions Clinical Impression: Conjunctivitis Qualifiers: Conjunctivitis type: unspecified Laterality: bilateral Qualified Code(s): H10.9 - Unspecified conjunctivitis Stand Alone Forms Stand Alone Forms: Work/School Release Instructions Patient Instructions: Conjunctivitis, DI for Conjunctivitis Discharge ED Provider: Delphine García [facility] General Stated complaint: LT eye redness w/drainage Mode of Arrival: Ambulatory Source of Information: Patient Limitations: No Limitations Time Seen by Provider: 08/27/22 11:05 Description of Symptoms (Recalled from Triage Doc. by RN): PATIENT C/O REDNESS AND DRAINAGE TO LEFT EYE SINCE THIS MORNING HEENT Symptoms (Recalled from RN notes): Yes Resp Symptoms (Recalled from RN notes): No Skin Symptoms (Recalled from RN notes): No MS Symptoms (Recalled from RN notes): No Functional Status (Recalled from RN notes): WNL History of Present Illness Provider Complaint: Patient states that she woke up this morning with her left eye matted shut and draining and now right eye is starting to look red so work made her come in and get it checked out Related Data Home Medications Medication Instructions Recorded Confirmed levothyroxine 50 mcg tablet 50 mcg PO DAILY HYPOTHYROID 12/25/20 08/27/22 (Euthyrox) furosemide 40 mg tablet 40 mg PO DAILY Fluid 08/27/22 08/27/22 losartan 100 mg tablet 100 mg PO DAILY Hypertension 08/27/22 08/27/22 meloxicam 15 mg tablet 15 mg PO DAILY Arthritis 08/27/22 08/27/22 Previous Rx's Medication Instructions Recorded gentamicin 0.3 % eye drops 2 drp ophthalmic (eye) Q4H 7 days 08/27/22 #5 mL Allergies Allergy/AdvReac Type Severity Reaction Status Date / Time chlorhexidine Allergy Intermediate Verified 09/25/21 14:03 [From Hibiclens] amoxicillin [From AUGMENTIN] Allergy Mild Verified 09/25/21 14:03 erythromycin base Allergy Mild Verified 09/25/21 14:03 [ERYTHROMYCIN BASE] metaxalone [From SKELAXIN] Allergy Mild Verified 09/25/21 14:03 amlodipine [From Norvasc] Allergy Rash,Itchin Verified 09/25/21 14:03 ess clavulanic acid Allergy Verified 09/25/21 14:03 [From Augmentin] Worker's Comp Is this a Worker's Comp case?: No [facility] Disclaimer: The information contained in this section may have been updated after the patient was seen, as this information can be updated by other users. Medical History (Updated 08/27/22 @ 11:06 by Delphine García APRN) Abnormal EKG Dyspnea Hyperlipidemia Hypertension Malignant hypertension Surgical History (Updated 04/12/22 @ 09:36 by Jannie Saini RN) History of back surgery Hx of tonsillectomy Status post endometrial ablation Family History (Updated 04/12/22 @ 09:36 by Jannie Saini RN) Other No significant family history Social History Smoking Status: Never smoker second hand exposure: Yes alcohol intake: never substance use type: denies use current occupational status: other Travel in the last 8 weeks:
[2022-08-27 11:05] VITALS: BP 118/79; PULSE 70; RESP 19; TEMP 36.4; O2SAT 100
== END 2022-08-27 11:08 | disposition home or self-care (01) ==
PROVIDERS: Emergency Provider Nurse Practitioner; PCP Nurse Practitioner Family
DX: H10.9 Unspecified conjunctivitis (principal)
CPT/HCPCS: 99212; 99214; G0463

== ENCOUNTER → 2022-10-27 16:14 | Outpatient (CLI) | payer OTHER, SELFPAY ==
[2022-10-27 16:48] LABS: Basophils # 0.1 K/mm3 (0-0.2); Basophils % 0.9 % (0.1-2.0); Eosinophils # 0.3 K/mm3 (0.0-0.4); Eosinophils % 2.7 % (0.1-12.0); Hemoglobin 14.5 g/dL (12.2-16.2); Lymphocytes # 3.3 K/mm3 (0.7-4.5); Lymphocytes % 34.5 % (10-50); Mean Corpuscular HGB Conc 32.3 g/dL (31.8-35.4); Mean Corpuscular Hemoglobin 28.2 pg (27.0-31.2); Mean Corpuscular Volume 87.4 fl (81-99); Mean Platelet Volume 9.3 fl (7.4-10.4); Monocytes # 0.5 K/mm3 (0.1-1.0); Monocytes % 5.7 % (1.7-9.3); Neutrophils # 5.4 K/mm3 (1.8-7.8); Neutrophils % 56.3 % (37.0-80.0); Platelet Count 269 K/mm3 (142-424); Red Blood Count 5.15 M/mm3 (4.20-5.40); Red Cell Distribution Width 13.5 % (11.5-17.5); White Blood Count 9.6 K/mm3 (4.8-10.8)
[2022-10-27 17:17] LABS: Alanine Aminotransferase 35 U/L (12-78); Albumin Level 4.7 g/dl (3.5-5.0); Albumin/Globulin Ratio 1.7 (1.1-1.8); Alkaline Phosphatase 82 U/L (38-126); Anion Gap 15.2 mEq/L (5-15); Aspartate Amino Transferase 35 U/L (14-36); Bilirubin,Total 0.4 mg/dl (0.2-1.3); Blood Urea Nitrogen 18 mg/dl (7-17); Calcium 9.2 mg/dl (8.4-10.2); Carbon Dioxide 31 mmol/L (22.0-30.0); Chloride 101 mmol/L (98-107); Estimated Glomerular Filt Rate 59 ml/min (>60); GFR (African American) 71 ML/MIN (>60); Globulin 2.8 g/dL (1.3-3.2); Glucose 90 mg/dl (74-100); Hemoglobin A1C 5.6 % (4.0-6.0); Potassium 4.2 mmoL/L (3.5-5.1); Sodium 143 mmol/L (136-145); Total Protein,Serum 7.5 g/dl (6.3-8.2); Uric Acid 5.7 mg/dl (2.5-6.2)
[2022-10-27 17:22] LABS: C-Reactive Protein 2.4 mg/L (0-4)
[2022-10-27 17:43] LABS: Erythrocyte Sedimentation Rate 13 mm/hr (0-20)
== END ==
LOC: LAB 16:15
PROVIDERS: PCP Nurse Practitioner Family; Visit Provider Nurse Practitioner Family
DX: M79.672 Pain in left foot (principal)
CPT/HCPCS: 36415; 80053; 83036; 84550; 85025; 85651; 86140

== ENCOUNTER 2023-06-25 08:56 | Emergency (ER) | payer OTHER, SELFPAY ==
[2023-06-25 09:15] VITALS: BP 116/70; PULSE 76; RESP 19; TEMP 37.1; O2SAT 97; BMI 32.9
--- NOTE | 2023-06-25 09:21 | ED_ITS ---
Discharge Plan Disposition Patient Disposition: Home, Self-Care Condition: Good Prescriptions Prescriptions: New benzonatate [benzonatate] 100 mg capsule 100 mg PO TIDP PRN (Reason: Cough) Qty: 30 0RF methylprednisolone 4 mg Tablets,Dose Pack 4 mg PO DIRECTED 6 Days Qty: 21 0RF Rx Instructions: Take 1 pack as directed for 6 days albuterol sulfate [Ventolin HFA] 90 mcg/actuation HFA aerosol inhaler 2 puff inhalation Q6H PRN (Reason: shortness of breath or wheezing) Qty: 6.7 0RF cefdinir 300 mg capsule 300 mg PO BID Qty: 20 0RF ipratropium-albuterol 0.5 mg-3 mg(2.5 mg base)/3 mL solution for nebulization 3 ml inhalation QID PRN (Reason: wheezing) Qty: 90 0RF No Action furosemide 40 mg tablet See Rx Instructions .ROUTE .COMPLEX Qty: 60 0RF Dose Instruction: TAKE ONE TABLET BY MOUTH 2 TIMES A DAY FOR FLUID RETENTION Rx Instructions: TAKE ONE TABLET BY MOUTH 2 TIMES A DAY FOR FLUID RETENTION losartan 100 mg tablet See Rx Instructions .ROUTE .COMPLEX Qty: 30 0RF Dose Instruction: TAKE ONE TABLET BY MOUTH ONCE A DAY Rx Instructions: TAKE ONE TABLET BY MOUTH ONCE A DAY meloxicam 15 mg tablet 15 mg PO DAILY carvedilol 6.25 mg tablet 6.25 mg PO DAILY atorvastatin 20 mg tablet 20 mg PO HS potassium chloride 20 mEq tablet,ER particles/crystals 20 meq PO DAILY levothyroxine 50 mcg tablet 50 mcg PO DAILY Referrals Follow up/Referrals: Carol Ha MD [Primary Care Provider] - See instructions Activity Restrictions/Add. Instructions Additional Instructions/Restrictions: Drink plenty of fluids. Take tylenol or ibuprofen for pain or fever. Take the medications as directed. Follow up with your regular doctor. GO TO THE ER FOR ANY WORSENING SYMPTOMS Clinical Impressions Clinical Impression: Acute bronchitis Instructions Patient Instructions: Acute Bronchitis, DI for Acute Bronchitis Discharge ED Provider: Marcus Fuentes [facility] [place] HPI General Stated complaint: Cough, congestion, Time Seen by Provider: 06/25/23 09:21 History of Present Illness Provider Complaint: She states that for the past 5 days she has had worsening sinus congestion, chest congestion, productive cough and malaise Related Data Home Medications Medication Instructions Recorded Confirmed meloxicam 15 mg tablet 15 mg PO DAILY Arthritis 08/27/22 06/25/23 atorvastatin 20 mg tablet 20 mg PO HS 06/25/23 06/25/23 carvedilol 6.25 mg tablet 6.25 mg PO DAILY 06/25/23 06/25/23 levothyroxine 50 mcg tablet 50 mcg PO DAILY 06/25/23 06/25/23 potassium chloride 20 mEq 20 meq PO DAILY 06/25/23 06/25/23 tablet,extended release(part/cryst) Previous Rx's Medication Instructions Recorded furosemide 40 mg tablet See Rx Instructions .Route 01/20/23 .COMPLEX #60 tabs losartan 100 mg tablet See Rx Instructions .Route 01/20/23 .COMPLEX #30 tabs albuterol sulfate 90 mcg/actuation 2 puff inhalation Q6H PRN 06/25/23 aerosol inhaler (Ventolin HFA) shortness of breath or wheezing #6.7 grams benzonatate 100 mg capsule 100 mg PO TIDP PRN Cough #30 caps 06/25/23 cefdinir 300 mg capsule 300 mg PO BID #20 caps 06/25/23 ipratropium 0.5 mg-albuterol 3 mg 3 ml inhalation QID PRN wheezing 06/25/23 (2.5 mg base)/3 mL nebulization #90 mL soln methylprednisolone 4 mg tablets in 4 mg PO DIRECTED 6 days #21 tabs 06/25/23 a dose pack Allergies Allergy/AdvReac Type Severity Reaction Status Date / Time chlorhexidine Allergy Intermediate Verified 10/27/22 15:40 [From Hibiclens] amoxicillin [From AUGMENTIN] Allergy Mild Verified 10/27/22 15:40 erythromycin base Allergy Mild Verified 10/27/22 15:40 [ERYTHROMYCIN BASE] metaxalone [From SKELAXIN] Allergy Mild Verified 10/27/22 15:40 amlodipine [From Norvasc] Allergy Rash,Itchin Verified 10/27/22 15:40 ess clavulanic acid Allergy Verified 10/27/22 15:40 [From Augmentin] [facility] Disclaimer: The information contained in this section may have been updated after the patient was seen, as this information can be updated by other users. Medical History Abnormal EKG Dyspnea Hyperlipidemia Hypertension Malignant hypertension Surgical History History of back surgery Hx of tonsillectomy Status post endometrial ablation Family History Other No significant family history Social History Smoking Status: Never smoker second hand exposure: Yes alcohol intake: never substance use type: denies use current occupational status: other Travel in the last 8 weeks: None household members: spouse housing: house current occupation: ACCOUNTING current occupational exposures/hazards: No caffeine: No ROS Obtained: Yes All systems reviewed & no additional complaints except as documented Constitutional Constitutional: Reports poor appetite Eyes Eyes: Reports system reviewed and no additional complaints, except as documented ENT Ears, Nose, Mouth, and Throat: Reports as per HPI Cardiovascular Cardiovascular: Reports system reviewed and no additional complaints, except as documented and Denies chest pain Respiratory Respiratory: Denies shortness of breath, Reports chest congestion, Reports cough, Denies stridor and Denies wheezing Gastrointestinal Gastrointestingal: Reports system reviewed and no additional complaints, except as documented; Denies abdominal pain, diarrhea or vomiting Musculoskeletal Musculoskeletal: Reports system reviewed and no additional complaints, except as documented and Denies arthralgias Integumentary/Breasts Skin/Breast: Reports system reviewed and no additional complaints, except as documented and Denies rash Neurologic Neurologic: Denies paresthesias Allergic/Immunologic Allergic/Immunologic: Denies wheezing Physical Exam General General appearance: alert and in no apparent distress Eye Eye exam: Present normal appearance, PERRL and EOMI ENT ENT exam: Present mucous membranes moist and normal external ear exam Expanded ENT Exam External ear exam: Present normal external inspection TM/Canal exam: Bilateral TM: erythema and bulging Nose exam: Absent sinus tenderness Nasal speculum exam: Bilateral: normal Mouth exam: Present normal external inspection; Absent drooling Teeth exam: Present normal inspection Throat exam: Present tonsillar erythema and tonsillomegaly Neck Neck exam: Present normal inspection, full ROM and trachea midline; Absent tenderness, lymphadenopathy or thyromegaly Chest Chest inspection: Present normal inspection and symmetric chest wall rise; Absent tenderness or rash Respiratory Respiratory exam: Present normal lung sounds bilaterally; Absent respiratory distress, wheezes, stridor or accessory muscle use Cardiovascular Cardiovascular exam: Present regular rate, normal rhythm and normal heart sounds Abdominal Exam Abdominal exam: Present soft; Absent distention, tenderness, guarding, rebound or rigidity Extremities Exam Extremities exam: Present normal inspection, full ROM and normal capillary refill; Absent tenderness or calf tenderness Back Exam Back exam: Present normal inspection and full ROM; Absent tenderness Neurological Exam Neurological exam: Present alert and oriented X3 Psychiatric Psychiatric exam: Present normal affect and normal mood Skin Skin exam: Present warm, dry, intact and normal color Lymphatic Lymphatic Findings: no adenopathy Medical Decision Making Medical Records Medical records reviewed: No I reviewed the patient's medical records. [place]annan Inquiry Pt receiving controlled substance: No
[2023-06-25 09:43] VITALS: BP 116/70; PULSE 76; RESP 19; TEMP 37.1; O2SAT 97
== END 2023-06-25 09:57 | disposition home or self-care (01) ==
PROVIDERS: Emergency Provider Nurse Practitioner Family; PCP Family Medicine
DX: J20.9 Acute bronchitis, unspecified (principal); R05.8 Other specified cough; R09.89 Other specified symptoms and signs involving the circulatory and respiratory systems; R09.81 Nasal congestion; R53.81 Other malaise; I10 Essential (primary) hypertension; E78.5 Hyperlipidemia, unspecified
CPT/HCPCS: 99212; 99214; G0463

== ENCOUNTER 2024-09-04 08:34 | Outpatient (CLI) | payer OTHER, SELFPAY ==
[2024-09-04 09:16] LABS: Albumin Level 4.3 g/dl (3.5-5.0); Chloride 108 mmol/L (98-107); Potassium 4.8 mmoL/L (3.5-5.1); Sodium 143 mmol/L (136-145)
[2024-09-04 09:19] LABS: Alanine Aminotransferase 37 U/L (12-78); Albumin/Globulin Ratio 1.7 (1.1-1.8); Alkaline Phosphatase 81 U/L (38-126); Anion Gap 11.8 mEq/L (5-15); Aspartate Amino Transferase 32 U/L (14-36); Bilirubin,Total 0.4 mg/dl (0.2-1.3); Blood Urea Nitrogen 9 mg/dl (7-17); Calcium 9.6 mg/dl (8.4-10.2); Carbon Dioxide 28 mmol/L (22.0-30.0); Estimated Glomerular Filt Rate 59 ml/min (>60); GFR (African American) 71 ML/MIN (>60); Globulin 2.6 g/dL (1.3-3.2); Glucose 118 mg/dl (74-100); Total Protein,Serum 6.9 g/dl (6.3-8.2)
== END 2024-09-04 23:59 | disposition home or self-care (01) ==
LOC: LAB 08:35
PROVIDERS: PCP Nurse Practitioner; Visit Provider Obstetrics & Gynecology
DX: Z01.419 Encounter for gynecological examination (general) (routine) without abnormal findings (principal)
CPT/HCPCS: 36415; 80053

== ENCOUNTER 2024-09-06 13:31 | Outpatient (CLI) | payer OTHER, SELFPAY ==
--- NOTE | 2024-09-06 13:30 | MM_ITS ---
PROCEDURE INFORMATION: Exam: MG Bilateral Screening 3D Mammography Exam date and time: 09/06/2024 1:39 PM Age: 48 years old Clinical indication: Screening examination. TECHNIQUE: Imaging protocol: Bilateral Screening tomosynthesis and 2D mammography including computer-aided detection (CAD) when performed. COMPARISON: 1. MG MAMMO SCREENING DIGITAL TOMOSYNTHESIS BILATERAL W CAD 06/02/2023 10:36 AM 2. MG MM DIG SCREENING MAMM BI W/CAD 07/25/2020 8:05 AM FINDINGS: MAMMOGRAPHY: Breast composition: There are scattered areas of fibroglandular density. Mass: None. Architectural distortion: None. Calcifications: No suspicious calcifications. Asymmetric density: None. Skin thickening: None. Axillary adenopathy: None. IMPRESSION: No mammographic evidence of malignancy. Annual screening is recommended unless otherwise clinically indicated. ASSESSMENT: BI-RADS Category 1: Negative.
== END 2024-09-06 23:59 | disposition home or self-care (01) ==
LOC: RAD 13:32
PROVIDERS: PCP Nurse Practitioner; Visit Provider Obstetrics & Gynecology
DX: Z12.31 Encounter for screening mammogram for malignant neoplasm of breast (principal)
CPT/HCPCS: 77063; 77067